=== PATIENT | female | born 1995 | race Caucasian/White ===

== ENCOUNTER 2020-04-07 10:57 | Emergency (ER) | payer SELFPAY ==
[~2020-04-07] VITALS: Ht 154.9 cm; Wt 65.8 kg
[2020-04-07] MEDS ORDERED: IV NS 0.9% 500 ML BAG IV ONE (12:00)
[2020-04-07 12:05] LABS: BASOPHILS % (AUTO) 0.4 % (0.0-2.0); EOSINOPHILS % (AUTO) 0.7 % (0.0-6.0); HEMATOCRIT 40 % (33-45); HEMOGLOBIN 13.5 g/dL (11.5-14.8); LYMPHOCYTES # (AUTO) 1.8 /CMM (0.8-4.8); LYMPHOCYTES % (AUTO) 19.1 % (20.0-44.0); MEAN CORPUSCULAR HGB CONC 34 g/dl (31.0-36.0); MEAN CORPUSCULAR VOLUME 86 fL (82-100); MONOCYTES # (AUTO) 0.4 /CMM (0.1-1.30); MONOCYTES % (AUTO) 3.9 % (2.0-12.0); NEUTROPHILS % (AUTO) 75.9 % (43.0-81.0); PLATELET COUNT (AUTO) 293 /CMM (150-450); RED BLOOD CELL COUNT(AUTO) 4.69 MIL/uL (4.0-5.2); WHITE BLOOD COUNT (AUTO) 9.2 K/uL (4.3-11.0)
--- NOTE | 2020-04-07 12:05 | NUR ---
BIBFRIEND FROM HOME TO ER BED 12. AAOX4. NOT IN RESP DISRESS. AMBULATORY. CAME IN FOR EPISODES OF PASSING OUT X 2 EPISODES TODAY. PT IS COMPLAINING OF HEADACHE. PT IS NOTED VERY ANXIOUS. PTS STATES THAT SHE HAS BEEN HAVING ALOT OF SCHOOL WORK AND WORKING ON A CA[employer]T [employer]. MD WAS AT THE BEDSIDE FOR EVAL. ORDERS RECEIVED NOTED AND CARRIED OUT. IV LINE ESTABLISHED ON L HAND 22G. BLOOD DRAWN BY UTILITY CLERK. EKG DONE BY EMT. PT WAS GUIDED WITH BREATHING EXERCISE TO ALLIVIATE ANXIETY WHICH IS EFFECTIVE.
[2020-04-07 12:11] LABS: CALCIUM, SERUM 8.4 mg/dL (8.5-10.1); CARBON DIOXIDE 25 mmol/L (21-32); CHLORIDE 103 mmol/L (98-107); CREATININE 0.7 mg/dL (0.6-1.3); GLUCOSE 103 mg/dL (74-106); POTASSIUM 3.9 mmol/L (3.5-5.1); SODIUM SERUM 138 mmol/L (136-145); UREA NITROGEN, BLOOD 8 mg/dL (7-18)
[2020-04-07 12:17] LABS: ALANINE AMINOTRANSFERASE 18 U/L (12-78); ALBUMIN 3.5 g/dL (3.4-5.0); ALKALINE PHOSPHATASE 46 U/L (46-116); ASPARTATE AMINOTRANSFERASE 11 U/L (15-37); BILIRUBIN,DIRECT 0.1 mg/dL (0.0-0.2); BILIRUBIN,TOTAL 0.3 mg/dL (0.2-1.0); TOTAL PROTEIN, SERUM 7.6 g/dL (6.4-8.2)
--- NOTE | 2020-04-07 14:02 | NUR ---
Patient discharged to home in stable condition. Written and verbal after care instructions given. Patient verbalizes understanding of instruction.IV removed. Catheter intact and site benign. Pressure and 4x4 applied to site. No bleeding noted. Pt ambulatory with a steady gait
[2020-04-07 14:03] VITALS: BP 118/70
== END 2020-04-07 14:03 | disposition home or self-care (01) ==
LOC: ER 11:02
DX: F07.81 Postconcussional syndrome (principal); R51 Headache; F84.0 Autistic disorder; R94.31 Abnormal electrocardiogram [ECG] [EKG]; Z88.0 Allergy status to penicillin
CPT/HCPCS: 36415; 70450; 71045; 80048; 80076; 84484; 85025; 93005; 99285; J7030